=== PATIENT | female | born 1985 | race Caucasian/White ===

== ENCOUNTER 2017-05-27 20:20 | Inpatient (IN) | payer OTHER ==
[~2017-05-27] VITALS: Ht 162.6 cm; Wt 54.4 kg
[~2017-05-27 20:20] MED LIST: DOXY100T PO; HYDR-3533 PO; LORTA5 PO; OXYC-360 PO
[2017-05-27 23:40] VITALS: BP 120/66; PULSE 91; RESP 20; TEMP 98; O2SAT 100
[2017-05-28 00:15] VITALS: BP 110/68; PULSE 110; RESP 24; TEMP 98; O2SAT 100
[2017-05-28] MEDS ORDERED: diphenhydrAMINE HCL 50 MG/ML VIAL - HS PRN IM (00:30)
[2017-05-28] MEDS ORDERED: BENZTROPINE MESYLATE 1 MG TAB PO PRN (00:30)
[2017-05-28] MEDS ORDERED: ALUMINUM/MAGNESIUM/SIMETH 30 ML CUP PO PRN (00:30)
[2017-05-28] MEDS ORDERED: ACETAMINOPHEN 325 MG TAB PO PRN (00:30)
[2017-05-28] MEDS ORDERED: HALOPERIDOL LACTATE 5 MG/ML AMP IM PRN (00:30)
[2017-05-28] MEDS ORDERED: hydrOXYzine HCL 50 MG TAB PO PRN (00:30)
[2017-05-28] MEDS ORDERED: ZIPRASIDONE MESYLATE 20 MG VIAL IM ONE (00:30)
[2017-05-28] MEDS ORDERED: LORazepam 1 MG TAB PO PRN (00:30)
[2017-05-28] MEDS ORDERED: diphenhydrAMINE HCL 50 MG CAP - HS PRN PO (00:30)
[2017-05-28] MEDS ORDERED: BENZTROPINE MESYLATE 2 MG/2 ML VIAL IM PRN (00:30)
[2017-05-28] MEDS ORDERED: MAGNESIUM HYDROXIDE SUSP 30 ML CUP PO PRN (00:30)
[2017-05-28] MEDS ORDERED: LORazepam 2 MG/ML VIAL IV PUSH PRN ×4 (00:30)
[2017-05-28] MEDS ORDERED: LORazepam 2 MG TAB PO PRN (00:30)
[2017-05-28] MEDS ORDERED: FLUMAZENIL 0.5 MG/5 ML VIAL IV PUSH PRN (00:30)
[2017-05-28] MEDS ORDERED: diphenhydrAMINE HCL 50 MG/ML VIAL IM ONE (00:30)
[2017-05-28 06:07] VITALS: BP 97/62; PULSE 67; RESP 18; TEMP 97.9; O2SAT 100
[2017-05-28] MEDS: NITROFURANTOIN MONOHYD MACROCR 100 MG CAP PO SCH ×3 (09:00→22:00)
[2017-05-28] MEDS: NICOTINE 21 MG/24 HR PATCH T-DERMAL SCH (09:00)
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
[2017-05-28 10:54] LABS: ANION GAP 7 MEQ/L (5-15); BICARBONATE 27.8 MEQ/L (21.0-32.0); BLOOD UREA NITROGEN 14 MG/DL (7-18); CHLORIDE 108 MEQ/L (98-107); GLOMERULAR FILTRATION RATE 103 ML/MIN (>89); POTASSIUM 3.7 MEQ/L (3.5-5.1); SODIUM (NA) 143 MEQ/L (136-145)
[2017-05-28 11:00] LABS: HDL CHOLESTEROL 46.5 MG/DL (40.0-60.0); LDL CHOLESTEROL 106 MG/DL (0-99)
[2017-05-28 11:02] LABS: BHCG SCREEN QUALITATIVE LESS THAN 1 MIU/ML (0-5)
[2017-05-28] MEDS ORDERED: ZIPRASIDONE MESYLATE 20 MG VIAL IM PRN (14:15)
[2017-05-28 15:09] LABS: AUTOMATED NEUTROPHIL # 3.2 TH/MM3 (1.8-7.7); BASOPHIL % 0.6 % (0.0-2.0); EOSINOPHIL # 0.1 TH/MM3 (0-0.4); EOSINOPHIL % 1.6 % (0.0-4.0); HEMATOCRIT 34.4 % (35.0-46.0); HEMO FLAGS DIFF FINAL; LYMPH % 36.1 % (9.0-44.0); LYMPHOCYTE # 2.1 TH/MM3 (1.0-4.8); MEAN CELL VOLUME 78.2 FL (80.0-100.0); MEAN CORPUSCULAR HEMOGLOBIN 24.8 PG (27.0-34.0); MEAN CORPUSCULAR HGB CONC 31.7 % (32.0-36.0); MONO % 5.4 % (0.0-8.0); NEUT % 56.3 % (16.0-70.0); PLATELET COUNT 212 TH/MM3 (150-450); RED BLOOD COUNT 4.39 MIL/MM3 (4.00-5.30); WHITE BLOOD COUNT 5.7 TH/MM3 (4.0-11.0)
[2017-05-28 15:27] LABS: FREE T4 1.14 NG/DL (0.76-1.46)
[2017-05-28 17:18] LABS: HEMOGLOBIN A1a 1.2 %; HEMOGLOBIN A1b 1.7 %; HEMOGLOBIN Ao 84.9 %; HEMOGLOBIN LA1C 1.9 %; HEMOGLOBIN P3 3.9 %
[2017-05-28 18:00] VITALS: BP 100/64; PULSE 59; RESP 18; TEMP 98.1; O2SAT 100
[2017-05-28 19:18] LABS: TRANSFERRIN IRON PROFILE 210 MG/DL (200-360)
[2017-05-28 19:21] LABS: FERRITIN 32 NG/ML (8-252)
[2017-05-28] MEDS: REMOVE OLD NICOTINE PATCH T-DERMAL SCH (21:00)
[2017-05-29 06:19] VITALS: BP 97/56; PULSE 83; RESP 16; TEMP 98.2; O2SAT 99
[2017-05-29 08:05] LABS: REVIEW FLAG FINAL
[2017-05-29] MEDS: NITROFURANTOIN MONOHYD MACROCR 100 MG CAP PO SCH ×2 (08:55→21:19)
[2017-05-29] MEDS: NICOTINE 21 MG/24 HR PATCH T-DERMAL SCH (08:56)
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
[2017-05-29] MEDS ORDERED: BISACODYL EC 5 MG TABEC PO PRN (14:45)
[2017-05-29] MEDS: FERROUS SULFATE 325 MG (65 MG ELEMENTAL IRON) TAB PO SCH (17:00)
[2017-05-29] MEDS: REMOVE OLD NICOTINE PATCH T-DERMAL SCH (21:00)
[2017-05-30 06:30] VITALS: BP 116/74; PULSE 86; RESP 18; TEMP 97.6; O2SAT 99
[2017-05-30] MEDS: NITROFURANTOIN MONOHYD MACROCR 100 MG CAP PO SCH (08:41)
[2017-05-30] MEDS: NICOTINE 21 MG/24 HR PATCH T-DERMAL SCH (08:42)
[2017-05-30] MEDS ORDERED: FERR325T20 PO (11:47)
[2017-05-30] MEDS ORDERED: NITR100C4 PO (11:47)
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
[2017-05-30] MEDS: FERROUS SULFATE 325 MG (65 MG ELEMENTAL IRON) TAB PO SCH (12:00)
== END 2017-05-30 15:20 | disposition home or self-care (01) | DRG 882 ==
LOC: H270 20:20 → H260 05-29 11:22
PROVIDERS: ADMIT Psychiatry & Neurology Psychiatry; ATTEND Psychiatry & Neurology Psychiatry
DX: F43.25 Adjustment disorder with mixed disturbance of emotions and conduct (principal); F41.9 Anxiety disorder, unspecified; F12.90 Cannabis use, unspecified, uncomplicated; F19.10 Other psychoactive substance abuse, uncomplicated
CPT/HCPCS: 80048; 80061; 82728; 83036; 83540; 83550; 84439; 84443; 84703; 85014; 85018; 85025; J1200; J3486